=== PATIENT | male | born 1980 | race Two or more races ===

== ENCOUNTER 2020-09-23 10:48 | Emergency (ER) | payer OTHER ==
[~2020-09-23] VITALS: Ht 154.9 cm; Wt 97.5 kg
[2020-09-23] MEDS ORDERED: DICLOFENAC POTA50 MG PO (14:04)
== END 2020-09-23 14:41 | disposition home or self-care (01) ==
LOC: ER 10:48
DX: M25.521 Pain in right elbow (principal)

== ENCOUNTER 2022-06-11 09:17 | Emergency (ER) | payer OTHER ==
[~2022-06-11] VITALS: Ht 180.3 cm; Wt 96.2 kg
[~2022-06-11 09:17] MED LIST: DICLOFENAC POTA50 MG PO
[2022-06-11] MEDS ORDERED: PAXLOVID 300-11 EACH PO (12:52)
== END 2022-06-11 13:01 | disposition home or self-care (01) ==
LOC: ER 09:17
DX: B34.9 Viral infection, unspecified (principal); Z20.822 Contact with and (suspected) exposure to COVID-19